=== PATIENT | female | born 1955 | race Caucasian/White ===

== ENCOUNTER 2025-04-29 09:42 | Emergency (ER) | payer MEDICARE, OTHER, SELFPAY ==
[2025-04-29 09:44] VITALS: BP 147/77
[2025-04-29 10:10] VITALS: BMI 28.4
[2025-04-29 10:11] LABS: Urine Character Clear (Clear)
--- NOTE | 2025-04-29 10:22 | ED.GENMED ---
History of Present Illness
General
Chief Complaint: Abdominal Symptoms
Time Seen by Provider: 04/29/25 09:52
History of Present Illness
History of Present Illness:
Patient is a 69-year-old female with past medical history of abdominal aortic aneurysm, hypertension, polycystic kidney disease, thyroid dysfunction, history of hysterectomy and cholecystectomy, here today for evaluation of abdominal pain along the
right side. Patient says she has had the abdominal pain for many years but worsening more recently over the past couple of weeks to months. She reports being seen in the emergency department twice and urgent care twice over the past month and a
half. She was initially diagnosed with a urinary tract infection and prescribed Augmentin on March 12. She then was evaluated again on April 01 and medication was changed to cefuroxime. She was then evaluated again on 04/24 and was prescribed
Macrobid. Symptoms have been persistent. She reports multiple CAT scans have been performed all of which have been negative for acute findings. She endorses nausea but denies vomiting. No diarrhea. No fevers. She does feel warm at times and
has had chills. She endorses discomfort upon urination and frequency but denies gross hematuria.
Review of Systems
Review of Systems
All Other Systems: ROS reviewed and negative except as documented in HPI and ROS
Phy Exam
Physical Exam
Physical Exam:
GENERAL: Alert , in no apparent distress
EYE: pupils equal and reactive
NECK: Supple
ENT: o/p clr, mmm.
CARDIAC: Regular rate and rhythm .
LUNGS: Clear breath sounds bilaterally, no acute respiratory distress, no wheezes/rales/rhonchi
ABDOMEN: Soft, moderate right upper greater than lower abdominal tenderness to palpation, no rebound, no guarding
NEUROLOGICAL: Alert and oriented, no focal neuro deficits
SKIN: Warm and dry, skin intact.
MUSCULOSKELETAL: No edema, well perfused.
PSYCH: Normal and appropriate interaction.
Course
Orders/Labs/Results
Orders:
Orders
04/29/25 10:00
Urinalysis Reflex To Culture Urgent
Date Specimen was Collected: 04/29/25
Time Specimen was Collected: :57
Urine Microscopic Reflex Cult Urgent
Urine Culture Urgent
ELIAZAR Source: U
Specimen Description:
Date Specimen was Collected: 04/29/25
Time Specimen was Collected: :
04/29/25 10:22
CT Abd/pelvis W Iv Cont Urgent
Comment:
Reason For Exam: abd pain, right side, nausea
04/29/25 10:29
Acetaminophen [Tylenol] 650 mg PO NOW STA
04/29/25 10:36
Complete Blood Count/With Diff Urgent
Comprehensive Metabolic Panel Urgent
Lipase Urgent
Abnormal Lab Results
04/29/25 04/29/25
10:00 10:36
MCHC 32.9 L g/dL
(33.0-37.0)
Neutrophils % 76.5 H %
(42.2-75.2)
Lymphocytes % 14.9 L %
(20.5-51.1)
Glucose 178 H mg/dl
(70-99)
Total Protein 6.0 L g/dl
(6.3-8.2)
Ur Occult Blood Reflex 3+ A
(Negative)
Leukocyte Esterase Rfl 3+ A
(Negative)
Urine WBC (Reflex) 16-20 A /HPF
(0-5)
Urine Bacteria (Reflex) Few A
(Negative)
Urine Albumin (Reflex) 2+ A
(Neg - Trace)
04/29/25 10:36
04/29/25 10:36
Vital Signs
Initial and Last Documented VS:
Initial Vital Signs
Temp Pulse Resp BP Pulse Ox
97.9 F 76 18 147/77 96
04/29/25 09:44 04/29/25 09:44 04/29/25 09:44 04/29/25 09:44 04/29/25 09:44
Last Documented Vital Signs
Temp Pulse Resp BP Pulse Ox
97.9 F 59 14 115/66 94
04/29/25 09:44 04/29/25 13:50 04/29/25 13:50 04/29/25 13:50 04/29/25 13:48
MDM/Problems Addressed
Differential Diagnosis Includes:
Patient is a 69-year-old female with past medical history of abdominal aortic aneurysm, hypertension, polycystic kidney disease, thyroid dysfunction, history of hysterectomy and cholecystectomy, here today for evaluation of abdominal pain along the
right side. Overall, patient appears well. Vitals remarkable for an elevated blood pressure physical examination remarkable for mild right upper quadrant greater than right lower quadrant abdominal tenderness to palpation, no rebound or guarding.
I am unable to review any prior records. Will initiate workup with urinalysis, screening labs, and CTAP.
04/29/2025 15:18: Screening labs reveal mild hyperglycemia. Urinalysis with blood and leukocyte esterase/WBCs but there is also squamous epithelium. There is few bacteria. We will send urine for culture. CT scan of the abdomen and pelvis reveals
no acute findings. There is polycystic kidney disease and a lesion in the right kidney which patient was already made aware of. Recommend nonemergent MRI. We also discussed the mild bronchiectasis which patient was also already made aware of. No
significant signs of pneumonia. Will hold off on treatment. Recommend supportive measures. Case was discussed with ED attending, Dr. Ribeiro, who evaluated patient at bedside. Will discharge at this time with recommendation to closely follow-up with
the patient's primary care provider. Will also recommend GI and urogynecology follow-up given the patient has had multiple evaluations for this abdominal discomfort and it is not entirely clear what is the etiology of the patient's symptoms.
Return precautions given. All questions answered. Stable for discharge.
*Pulse Oximetry
SaO2: 94
Oxygen Mode of Delivery: Room air
Patient hypoxic: no
*Critical Care Note
Total Time (30-74mins, 75-104mins- exclusive of procedures): Not Applicable
ED Attending Note
-
Portions of this chart may have been created with voice recognition software.� Occasional wrong word or��sound alike� substitutions may have occurred due to the inherent limitations of voice recognition software.
Discharge Plan
Departure
Patient Disposition: Home (Routine Discharge)
Date of Disposition: 04/29/25
Time of Disposition: 15:13
Patient with high blood pressure during this ER visit?: Yes
Condition: Fair
Discharge Problem:
Abdominal pain
Instructions: Abdominal Pain
Prescriptions:
No Action
levothyroxine [Synthroid] 175 mcg Tablet
175 mcg PO DAILY
amlodipine-benazepril 10-40 mg Capsule
1 cap PO DAILY
nebivolol [Bystolic] 5 mg Tablet
5 mg PO DAILY
Referrals:
Deion Sanches MD [Active, Gastroenterology] - Follow up in 10 days
Tiffanie Connelly DO [Active, Urology] - Follow up in 10 days
Kirsten Selby DO [Family Provider, Family Practice] - Follow up in 5-7 days
Activity Restrictions/Additional Instructions:
Please follow-up with your primary care provider as well as specialist gastroenterology (GI) and urogynecology for further testing and evaluation.
Return for any new, worsening, or concerning symptoms.
Interventions
Interventions:
*Risk Screen - Suicide Last Done: 04/29/25 09:44
*General Assessment Last Done: 04/29/25 09:44
*Neglect/Abuse Screening Last Done: 04/29/25 09:44
*ED- Fall Risk Assessment Last Done: 04/29/25 10:10
*ED COVID-19 Vaccine History Last Done: 04/29/25 10:10
VZ-Ndovpq-Jfrrdmgqex Assessment Last Done: 04/29/25 10:42
Discharge Date and Time
Print Language: CROATIAN
[2025-04-29] MEDS: TYLENOL 650 MG PO (10:40)
[2025-04-29 10:46] LABS: Urine Red Blood Cell 0-2 /HPF (0-2); Urine White Cell 16-20 /HPF (0-5)
[2025-04-29 10:58] LABS: Hematocrit 39.2 % (37.0-47.0); Hemoglobin 12.9 g/dL (12.0-16.0); Mean Corp Hgb Conc. 32.9 g/dL (33.0-37.0); Mean Corpuscular Volume 87.3 fL (81.0-99.0); Nucleated Red Blood Cells % 0 %; Platelet Count 238 10^3/uL (130-400); Red Cell Dist. Width 13.0 % (11.5-14.5)
[2025-04-29 11:03] LABS: ALT (SGPT) 17 U/L (0-35); AST (SGOT) 17 U/L (14-36); Albumin 4.1 g/dl (3.5-5.0); Alkaline Phosphatase 65 U/L (38-126); Blood Urea Nitrogen 15 mg/dl (7-17); Calcium 9.2 mg/dl (8.4-10.2); Carbon Dioxide 25 mmol/L (22-30); Chloride 107 mmol/L (98-107); Estimated Creatinine Clearance 80 ml/min; Glucose 178 mg/dl (70-99); Lipase 155 U/L (23-300); Potassium 3.8 mmol/L (3.5-5.1); Sodium 139 mmol/L (135-145); Total Protein 6.0 g/dl (6.3-8.2); eGFR > 60.00
[2025-04-29 11:45] VITALS: BP 112/70
[2025-04-29 11:47] VITALS: BP 112/70
[2025-04-29 13:50] VITALS: BP 115/66
[2025-04-29 15:18] VITALS: BP 119/77
== END 2025-04-29 15:32 | disposition home or self-care (01) ==
LOC: EMR 09:42
PROVIDERS: Physician Assistant; EMERGENCY PHYSICIAN Emergency Medicine; FAMILY PHYSICIAN Family Medicine
DX: R10.9 Unspecified abdominal pain (principal); I10 Essential (primary) hypertension; I71.40 Abdominal aortic aneurysm, without rupture, unspecified; E28.2 Polycystic ovarian syndrome; J47.9 Bronchiectasis, uncomplicated; Z87.440 Personal history of urinary (tract) infections
CPT/HCPCS: 99284; 74177; 80053; 81003; 81015; 83690; 85025; 87086; Q9967

== ENCOUNTER 2025-06-10 09:53 | Emergency (ER) | payer MEDICARE, OTHER, SELFPAY ==
[2025-06-10 09:54] VITALS: BMI 29.1
[2025-06-10 09:55] VITALS: BP 157/84
--- NOTE | 2025-06-10 11:20 | ED.GENMED ---
History of Present Illness
General
Chief Complaint: Abdominal Pain
Source: patient
Exam Limitations: none
Time Seen by Provider: 06/10/25 11:06
Nursing documentation reviewed up to this point in time: agreed with
History of Present Illness
History of Present Illness:
Patient is a 69-year-old female with history of abdominal aortic aneurysm, hypertension polycystic kidney disease thyroid dysfunction hysterectomy cholecystectomy presents to the ER for evaluation of abdominal pain. She reports she has had
abdominal pain for years. She reports that normally is dull however recently has gotten worse .she has it every day and is very sharp in nature. She feels pain mostly in the right upper quadrant radiating to her back. She admits to having gone to
many ERs for this including [place], [facility], [place]. She is followed by GI at [place] that she is not happy and wants to switch. She is also not happy with the family doctor. She is followed by urology here Dr. Gibbons who ordered an
outpt MRI however it is not scheduled until July.
She is concerned about her kidneys because she has polycystic kidney disease. She tells me she has had multiple CAT scans at various ERs and hospitals. She was seen here in April and had a CAT scan with contrast. I did review this CAT scan
this CAT scan shows a unilateral right-sided polycystic kidney but no definite hydro and nonobstructive renal calculi. Report also states that there is 1.0 cm hypodense lesion along the anterior aspect of the upper pole of the right kidney on MRI
would be recommended.
Phy Exam
General Physical Exam
General Presentation: no apparent distress
General age: appears stated age
General Skin: warm and dry
General Habitus: normal
General Mental: alert
General Hydration: appears well hydrated
Cardiovascular Exam
Cardiovascular Exam: regular rate/rhythm, no murmur and normal peripheral pulses
Pulmonary Exam
Pulmonary Exam: lungs clear and no respiratory distress
Gastrointestinal Exam
Gastrointestinal Exam: normal bowel sounds, non tender and soft
Neurological Exam
Neurological Exam: alert and oriented x3
Musculoskeletal Exam
Musculoskeletal Exam: full ROM
Skin Exam
Skin Exam: normal color and warm/dry
Psychiatric Exam
Psychiatric Exam: normal mood/affect
Course
Orders/Labs/Results
Orders:
Orders
06/10/25 11:40
US Abdomen Complete/Upper Urgent
Comment:
Reason For Exam: upper abd pain
06/10/25 11:45
0.9% Sodium Chloride 1000 ml [Nss] 1,000 ml IV BOLUS
Ondansetron Injectable [Zofran] 4 mg IV NOW STA
06/10/25 11:49
Complete Blood Count/With Diff Urgent
Comprehensive Metabolic Panel Urgent
Lipase Urgent
Urinalysis Reflex To Culture Urgent
Date Specimen was Collected: 06/10/25
Time Specimen was Collected: 11:48
Urine Microscopic Reflex Cult Urgent
Abnormal Lab Results
06/10/25
11:49
MCHC 32.5 L g/dL
(33.0-37.0)
Lymphocytes % 18.3 L %
(20.5-51.1)
Creatinine 0.5 L mg/dL
(0.6-1.0)
Glucose 109 H mg/dl
(70-99)
Ur Occult Blood Reflex 3+ A
(Negative)
Urine RBC 3-6 A /HPF
(0-2)
Urine Bacteria (Reflex) Few A
(Negative)
06/10/25 11:49
06/10/25 11:49
Vital Signs
Initial and Last Documented VS:
Initial Vital Signs
Temp Pulse Resp BP Pulse Ox
98.8 F 76 16 157/84 95
06/10/25 09:55 06/10/25 09:55 06/10/25 09:55 06/10/25 09:55 06/10/25 09:55
Last Documented Vital Signs
Temp Pulse Resp BP Pulse Ox
98.8 F 61 16 134/84 99
06/10/25 09:55 06/10/25 16:24 06/10/25 16:24 06/10/25 16:24 06/10/25 16:24
MDM/Problems Addressed
Differential Diagnosis Includes:
not limited to: Chronic abdominal pain
MDM/Problems Addressed:
As documented patient has had chronic abdominal pain for months she has been to multiple ERs and had multiple CAT scans. She has been to multiple specialists and providers.
She is also being evaluated by urogynecology who ordered an outpatient MRI of her abdomen however this MRI is not scheduled for July. She presented here to the ER to see if we could expedite her MRI. She presents awake alert no acute distress
she denies any fever she is afebrile her vital signs are stable her labs are unremarkable including urinalysis. I did recommend holding off on CAT scan and she is in agreement with this ultrasound was done which does show polycystic appearance of
her right kidney with out hydronephrosis this is not new. She was just seen April 29 for abdominal pain and CAT scan was done at that time.
Discussed with patient to call her family doctor as well as your cooker tender to order the MRI and to see if they can possibly expedite this however there is nothing acute requiring admission or further workup in The ER.
Chronic conditions affecting care:
Chronic abdominal pain
*Radiology
Radiology exam reviewed: radiology read reviewed
*Pulse Oximetry
SaO2: 95
Oxygen Mode of Delivery: Room air
Patient hypoxic: no
*Critical Care Note
Total Time (30-74mins, 75-104mins- exclusive of procedures): Not Applicable
Data Reviewed
Review of Other/Old Records Reveals: Labs and Radiology Studies
Source: patient
ED Attending Note
-
Portions of this chart may have been created with voice recognition software.� Occasional wrong word or��sound alike� substitutions may have occurred due to the inherent limitations of voice recognition software.
Discharge Plan
Departure
Patient Disposition: Home (Routine Discharge)
Date of Disposition: 06/10/25
Time of Disposition: 16:24
Patient with high blood pressure during this ER visit?: Yes
Condition: Fair
Covid-19: Not Applicable
Discharge Problem:
Abdominal pain
Instructions: Abdominal Pain, BLOOD PRESSURE
Prescriptions:
No Action
levothyroxine [Synthroid] 175 mcg Tablet
175 mcg PO DAILY
amlodipine-benazepril 10-40 mg Capsule
1 cap PO DAILY
nebivolol [Bystolic] 5 mg Tablet
5 mg PO DAILY
Referrals:
Tiffanie Connelly DO [Active, Urology]
Kirsten Selby DO [Family Provider, Family Practice]
Activity Restrictions/Additional Instructions:
Please follow up with DR Connelly . Call office tomorrow to discuss possibly being able to expedite MRI and for further evaluation of symptoms.
Interventions
Interventions:
*Risk Screen - Suicide Last Done: 06/10/25 09:55
*General Assessment Last Done: 06/10/25 09:55
*Neglect/Abuse Screening Last Done: 06/10/25 09:55
*ED- Fall Risk Assessment Last Done: 06/10/25 11:58
*ED COVID-19 Vaccine History Last Done: 06/10/25 09:55
*ED Influenza Vaccine History Last Done: 06/10/25 09:55
*Nursing Disposition Last Done: 06/10/25 16:24
YA-Neecey-Vfrdvkpqgi Assessment Last Done: 06/10/25 11:58
Discharge Date and Time
Discharge Date/Time: 06/10/25 16:27
Print Language: SLOVAK
[2025-06-10] MEDS: NSS 1000 IV (11:52)
[2025-06-10] MEDS: ZOFRAN 4 MG IV (11:53)
[2025-06-10 12:09] LABS: Hematocrit 43.4 % (37.0-47.0); Hemoglobin 14.1 g/dL (12.0-16.0); Mean Corp Hgb Conc. 32.5 g/dL (33.0-37.0); Mean Corpuscular Volume 89.9 fL (81.0-99.0); Nucleated Red Blood Cells % 0 %; Platelet Count 268 10^3/uL (130-400); Red Cell Dist. Width 12.8 % (11.5-14.5)
[2025-06-10 12:11] LABS: Urine Character Clear (Clear)
[2025-06-10 12:24] LABS: ALT (SGPT) 18 U/L (0-35); AST (SGOT) 19 U/L (14-36); Albumin 4.4 g/dl (3.5-5.0); Alkaline Phosphatase 78 U/L (38-126); Blood Urea Nitrogen 12 mg/dl (7-17); Calcium 9.3 mg/dl (8.4-10.2); Carbon Dioxide 27 mmol/L (22-30); Chloride 104 mmol/L (98-107); Estimated Creatinine Clearance 95 ml/min; Glucose 109 mg/dl (70-99); Lipase 108 U/L (23-300); Potassium 3.7 mmol/L (3.5-5.1); Sodium 137 mmol/L (135-145); Total Protein 6.9 g/dl (6.3-8.2); eGFR > 60.00
[2025-06-10 13:07] LABS: Urine Squamous Cell >30 /LPF (Few)
[2025-06-10 16:24] VITALS: BP 134/84
== END 2025-06-10 16:27 | disposition home or self-care (01) ==
LOC: EMR 09:53
PROVIDERS: Nurse Practitioner; EMERGENCY PHYSICIAN Student in an Organized Health Care Education/Training Program; FAMILY PHYSICIAN Family Medicine
DX: G89.29 Other chronic pain (principal); R10.11 Right upper quadrant pain; I10 Essential (primary) hypertension; Q61.3 Polycystic kidney, unspecified; Z90.710 Acquired absence of both cervix and uterus; Z90.49 Acquired absence of other specified parts of digestive tract
CPT/HCPCS: 99285; 96374; 96361; 76700; 80053; 81003; 81015; 83690; 85025

== ENCOUNTER → 2025-06-21 12:58 | Outpatient (REF) | payer MEDICARE, OTHER, SELFPAY | LOC: CLAB 12:58 | PROVIDERS: ATTENDING PHYSICIAN Urology | DX: N39.0 Urinary tract infection, site not specified (principal); R31.9 Hematuria, unspecified | CPT/HCPCS: 87077; 87086; 87186; 88112 ==

== ENCOUNTER → 2025-07-20 12:34 | Outpatient (REF) | payer MEDICARE, OTHER, SELFPAY | LOC: PAVMRI 12:34 | PROVIDERS: ATTENDING PHYSICIAN Urology | DX: Q61.3 Polycystic kidney, unspecified (principal); N28.1 Cyst of kidney, acquired | CPT/HCPCS: 74183; A9575 ==